=== PATIENT | female | born 1960 | race African-American/Black ===

== ENCOUNTER 2017-06-26 07:53 | Emergency (ER) | payer OTHER ==
[~2017-06-26] VITALS: Ht 172.7 cm; Wt 113.0 kg
[2017-06-26] MEDS ORDERED: IBUPROFEN 600MG TABLET PO ONE (09:30)
[2017-06-26] MEDS ORDERED: METHOCARBAMOL 500MG TABLET PO ONE (09:30)
[2017-06-26 13:45] VITALS: BP 158/75
== END 2017-06-26 13:53 | disposition home or self-care (01) ==
LOC: ER 07:53
DX: S16.1XXA Strain of muscle, fascia and tendon at neck level, initial encounter (principal); M54.5 Low back pain; R03.0 Elevated blood-pressure reading, without diagnosis of hypertension; V49.40XA Driver injured in collision with unspecified motor vehicles in traffic accident, initial encounter; Y93.89 Activity, other specified; Y92.410 Unspecified street and highway as the place of occurrence of the external cause
CPT/HCPCS: 99283